=== PATIENT | male | born 1950 | race Caucasian/White ===

== ENCOUNTER 2021-05-04 15:25 | Inpatient (IN) ==
[2021-05-04 16:38] LABS: Bilirubin,Urine Negative (Negative); Blood,Urine Negative (Negative); Clarity,Urine Clear (Clear); Color,Urine Colorless (Yellow); Glucose,Urine (UA) Normal (Normal); Ketones,Urine Negative (Negative); Leukocyte Esterase,Urine Negative (Negative); Nitrite,Urine Negative (Negative); PH,Urine 5.5 pH Units (5.0-8.0); Protein,Urine Negative (Neg-Trace); Urobilinogen,Urine Normal (Normal)
[2021-05-04 16:38] LABS: Hemoglobin 6.8 g/dL (12.9-16.9); Lymphocytes % 16.3 %; Red Cell Distribution Width 17.6 % (11.5-14.5)
[2021-05-04 16:40] LABS: Basophils # 0.1 K/mcL (0.0-0.2); Basophils % 0.6 %; Eosinophils # 0.2 K/mcL (0.0-0.6); Eosinophils % 2.8 %; Immature Granulocytes % 0.7 % (0-4); Lymphocytes # 1.4 K/mcL (0.6-4.6); Mean Corpuscular HGB Conc 26.2 g/dL (31.6-35.5); Mean Corpuscular Hemoglobin 20.1 pg (28.0-33.3); Mean Corpuscular Volume 76.7 fL (83.0-100.0); Mean Platelet Volume 10.4 fL (9.4-12.4); Monocytes # 0.8 K/mcL (0.0-1.3); Neutrophils # 5.8 K/mcL (1.6-8.9); Nucleated Red Blood Cells 0.4 /100 WBC (0); Platelet Count 275 K/mcL (140-400); Red Blood Count 3.39 M/mcL (4.19-5.50); Segmented Neutrophils % 69.6 %; White Blood Count 8.3 K/mcL (4.3-11.1)
[2021-05-04 16:40] LABS: VBG HCO3 28 mEq/L (21-27); VBG PCO2 54 mmHg (41-51); VBG PH 7.32 pH Units (7.32-7.42); VBG PO2 47 mmHg (25-50)
[2021-05-04 16:47] LABS: Amphetamine Screen,Urine Negative ng/mL (Cutoff=1000); Barbiturate Screen,Urine Negative ng/mL (Cutoff=200); Benzodiazepines Screen,Urine Negative ng/mL (Cutoff=200); Cannabinoid Screen,Urine Negative ng/mL (Cutoff = 50); Cocaine Screen,Urine Negative ng/mL (Cutoff= 300); Opiate Screen,Urine Negative ng/mL (Cutoff=300); Phencyclidine Screen,Urine Negative ng/mL (Cutoff=25)
[2021-05-04 17:03] LABS: Hypochromasia Present (Not Present); Polychromasia 1+ (Not Present)
[2021-05-04 17:13] LABS: BUN/Creatinine Ratio 28 (6-26); Blood Urea Nitrogen 30 mg/dL (8-23); Calcium 9.2 mg/dL (8.6-10.3); Carbon Dioxide 26 mEq/L (23-29); Chloride 98 mEq/L (98-107); Creatine Kinase 88 Units/L (30-223); Ethanol < 10 mg/dL (Less than 10); Glucose 146 mg/dL (70-105); Magnesium 1.6 mg/dL (1.6-2.6); Osmolality,Calculated 293 (280-300); Potassium 4.4 mEq/L (3.5-5.1); Sodium 137 mEq/L (136-145); eGFR For African Americans > 60 (> 60); eGFR For Non-African Americans > 60 (> 60)
[2021-05-04 17:14] LABS: Troponin I < 0.03 ng/mL (< 0.04)
[2021-05-04] MEDS ORDERED: 0.9 % Sodium Chloride 250 ML ONE (18:18)
[2021-05-04] MEDS ORDERED: Naloxone 0.4 MG/ML INJ IVP PRN (19:13)
[2021-05-04] MEDS ORDERED: *HR* Promethazine 25 MG/ML VIAL IM PRN (19:13)
[2021-05-04] MEDS ORDERED: Acetaminophen 325 MG TABLET PO PRN (19:13)
[2021-05-04] MEDS ORDERED: Ondansetron 4 MG/2 ML VIAL IVP PRN (19:13)
[2021-05-04] MEDS ORDERED: Melatonin 3 MG TABLET PO PRN (19:13)
[2021-05-04] MEDS ORDERED: *HR* Dextrose 50 % in Water (Syg) 50 ML SYRINGE IVP PRN (19:16)
[2021-05-04] MEDS ORDERED: Dextrose 4 GM Chewable Tablets PO PRN ×2 (19:16)
[2021-05-04] MEDS ORDERED: D5% in Water 1,000 ML IVC PRN (19:16)
[2021-05-04] MEDS ORDERED: Pantoprazole 40 MG VIAL IVP ONE (19:25)
[2021-05-04] MEDS ORDERED: Magnesium Sulfate 1 GM/102 ML PIGGYBACK IVPB ONE (19:51)
[2021-05-04 19:52] LABS: Ferritin < 8 ng/mL (20-250); Iron < 10 mcg/dL (65-175); Transferrin 373 mg/dL (203-362)
[2021-05-04 19:58] LABS: Folate 20.8 ng/mL (3.0-16.0)
[2021-05-04] MEDS ORDERED: Iron Sucrose Complex 400 MG in 0.9 % Sodium Chloride 250 ML IVPB ONE (20:02)
[2021-05-04] MEDS ORDERED: Cyanocobalamin (B-12) 1,000 MCG/ML VIAL SQ ONE (21:44)
[2021-05-04 21:57] LABS: Hematocrit 27.3 % (37.5-50.1); Hemoglobin 7.4 g/dL (12.9-16.9)
[2021-05-05] MEDS ORDERED: Furosemide 20 MG/2 ML VIAL IVP ONE (00:06)
[2021-05-05] MEDS ORDERED: 0.9 % Sodium Chloride 250 ML IVC SCH (00:15)
[2021-05-05] MEDS: Insulin LISPRO 300 UNITS/3 ML VIAL SUBQ SCH ×4 (04:11→18:19)
[2021-05-05] MEDS: 0.9 % Sodium Chloride 1,000 ML IVC SCH ×3 (04:31→22:18)
[2021-05-05] MEDS: Pantoprazole 40 MG in 0.9 % Sodium Chloride Mini Bag 100 ML IVC SCH ×5 (04:32→18:44)
[2021-05-05] MEDS ORDERED: Pantoprazole 40 MG VIAL IVP SCH (06:00)
[2021-05-05 06:06] LABS: Hemoglobin 8.3 g/dL (12.9-16.9); Nucleated Red Blood Cells 0.3 /100 WBC (0); Red Cell Distribution Width 17.8 % (11.5-14.5)
[2021-05-05 06:07] LABS: Basophils # 0.1 K/mcL (0.0-0.2); Basophils % 0.7 %; Eosinophils # 0.2 K/mcL (0.0-0.6); Immature Granulocytes % 0.9 % (0-4); Lymphocytes # 1.1 K/mcL (0.6-4.6); Lymphocytes % 14.3 %; Mean Corpuscular HGB Conc 28.6 g/dL (31.6-35.5); Mean Corpuscular Hemoglobin 21.3 pg (28.0-33.3); Mean Corpuscular Volume 74.6 fL (83.0-100.0); Monocytes # 0.8 K/mcL (0.0-1.3); Monocytes % 11.4 %; Neutrophils # 5.2 K/mcL (1.6-8.9); Platelet Count 212 K/mcL (140-400); Red Blood Count 3.89 M/mcL (4.19-5.50); Segmented Neutrophils % 69.7 %; White Blood Count 7.4 K/mcL (4.3-11.1)
[2021-05-05 06:29] LABS: BUN/Creatinine Ratio 30 (6-26); Blood Urea Nitrogen 27 mg/dL (8-23); Calcium 8.9 mg/dL (8.6-10.3); Carbon Dioxide 30 mEq/L (23-29); Chloride 100 mEq/L (98-107); Glucose 89 mg/dL (70-105); Magnesium 1.7 mg/dL (1.6-2.6); Osmolality,Calculated 291 (280-300); Potassium 3.6 mEq/L (3.5-5.1); Sodium 138 mEq/L (136-145); eGFR For African Americans > 60 (> 60); eGFR For Non-African Americans > 60 (> 60)
[2021-05-05 07:15] LABS: Anisocytosis 1+ (Not Present); Hypochromasia Present (Not Present); Platelet Estimate Normal (Normal)
[2021-05-05 07:16] LABS: Polychromasia 1+ (Not Present)
[2021-05-06] MEDS: 0.9 % Sodium Chloride 1,000 ML IVC SCH ×3 (02:16→23:27)
[2021-05-06] MEDS: Pantoprazole 40 MG in 0.9 % Sodium Chloride Mini Bag 100 ML IVC SCH ×3 (02:17→13:56)
[2021-05-06] MEDS: Insulin LISPRO 300 UNITS/3 ML VIAL SUBQ SCH ×5 (02:25→23:45)
[2021-05-06 03:00] LABS: Eosinophils % 2.7 %
[2021-05-06 03:01] LABS: Basophils % 0.5 %; Eosinophils # 0.2 K/mcL (0.0-0.6); Hematocrit 29.7 % (37.5-50.1); Hemoglobin 8.1 g/dL (12.9-16.9); Immature Granulocytes % 0.6 % (0-4); Lymphocytes # 0.8 K/mcL (0.6-4.6); Lymphocytes % 11.9 %; Mean Corpuscular HGB Conc 27.3 g/dL (31.6-35.5); Mean Corpuscular Hemoglobin 20.8 pg (28.0-33.3); Mean Corpuscular Volume 76.3 fL (83.0-100.0); Mean Platelet Volume 10.5 fL (9.4-12.4); Monocytes # 0.8 K/mcL (0.0-1.3); Monocytes % 11.6 %; Neutrophils # 4.8 K/mcL (1.6-8.9); Nucleated Red Blood Cells 0.6 /100 WBC (0); Platelet Count 243 K/mcL (140-400); Red Blood Count 3.89 M/mcL (4.19-5.50); Red Cell Distribution Width 18.2 % (11.5-14.5); Segmented Neutrophils % 72.7 %; White Blood Count 6.6 K/mcL (4.3-11.1)
[2021-05-06 03:16] LABS: BUN/Creatinine Ratio 14 (6-26); Blood Urea Nitrogen 10 mg/dL (8-23); Calcium 9.4 mg/dL (8.6-10.3); Carbon Dioxide 27 mEq/L (23-29); Chloride 104 mEq/L (98-107); Glucose 123 mg/dL (70-105); Osmolality,Calculated 286 (280-300); Potassium 3.7 mEq/L (3.5-5.1); Sodium 138 mEq/L (136-145); eGFR For African Americans > 60 (> 60); eGFR For Non-African Americans > 60 (> 60)
[2021-05-06 03:20] LABS: Anisocytosis 1+ (Not Present); Microcytosis Present (Not Present); Platelet Estimate Normal (Normal)
[2021-05-06] MEDS: Fluticasone Propionate Nasal 50 MCG/SPRAY BOTTLE NS SCH (10:30)
[2021-05-06] MEDS ORDERED: Lidocaine -MPF 2% 5 ML VIAL ONE (15:09)
[2021-05-06] MEDS ORDERED: *HR* Propofol 200 MG/20 ML VIAL IVP ONE ×2 (15:44→15:55)
[2021-05-06] MEDS: Levalbuterol Neb 1.25 MG/3 ML IH SCH (21:54)
[2021-05-06] MEDS: allopurinoL 100 MG TABLET PO SCH (23:26)
[2021-05-06] MEDS: Isosorbide MONOnitrate (24 HR) 60 MG TAB.ER.24H PO SCH (23:26)
[2021-05-06] MEDS: hydroCHLOROthiazide 25 MG TABLET PO SCH (23:26)
[2021-05-06] MEDS: lisinopriL 20 MG TABLET PO SCH (23:26)
[2021-05-06] MEDS: Apixaban 5 MG TABLET PO SCH (23:27)
[2021-05-06] MEDS: Ezetimibe [Zetia] 10 MG Tablet PO SCH (23:28)
[2021-05-07] MEDS ORDERED: Ketorolac 30 MG/ML VIAL IVP ONE (01:37)
[2021-05-07] MEDS ORDERED: *HR* HYDROcodone/Acet 5/325 mg TABLET PO ONE (01:38)
[2021-05-07] MEDS: Levalbuterol Neb 1.25 MG/3 ML IH SCH ×2 (04:34→10:41)
[2021-05-07 05:18] LABS: Basophils % 0.3 %; Hemoglobin 7.5 g/dL (12.9-16.9); Immature Granulocytes % 0.4 % (0-4)
[2021-05-07 05:19] LABS: Eosinophils # 0.2 K/mcL (0.0-0.6); Eosinophils % 1.6 %; Hematocrit 26.7 % (37.5-50.1); Lymphocytes # 0.9 K/mcL (0.6-4.6); Lymphocytes % 8.8 %; Mean Corpuscular HGB Conc 28.1 g/dL (31.6-35.5); Mean Corpuscular Hemoglobin 21.9 pg (28.0-33.3); Mean Corpuscular Volume 77.8 fL (83.0-100.0); Mean Platelet Volume 10.7 fL (9.4-12.4); Monocytes % 9.2 %; Neutrophils # 8.3 K/mcL (1.6-8.9); Platelet Count 218 K/mcL (140-400); Red Blood Count 3.43 M/mcL (4.19-5.50); Red Cell Distribution Width 18.6 % (11.5-14.5); Segmented Neutrophils % 79.7 %; White Blood Count 10.4 K/mcL (4.3-11.1)
[2021-05-07 05:32] LABS: BUN/Creatinine Ratio 7 (6-26); Blood Urea Nitrogen 5 mg/dL (8-23); Calcium 8.9 mg/dL (8.6-10.3); Carbon Dioxide 27 mEq/L (23-29); Chloride 104 mEq/L (98-107); Glucose 124 mg/dL (70-105); Osmolality,Calculated 283 (280-300); Potassium 3.6 mEq/L (3.5-5.1); Sodium 137 mEq/L (136-145); eGFR For African Americans > 60 (> 60); eGFR For Non-African Americans > 60 (> 60)
[2021-05-07 06:10] LABS: Hypochromasia Present (Not Present); Platelet Estimate Normal (Normal)
[2021-05-07] MEDS: Insulin LISPRO 300 UNITS/3 ML VIAL SUBQ SCH (06:27)
[2021-05-07] MEDS ORDERED: Colchicine 0.6 MG TABLET PO SCH (09:00)
[2021-05-07] MEDS ORDERED: Aspirin Enteric Coated 81 MG Tablet PO SCH (09:00)
[2021-05-07] MEDS ORDERED: hydroCHLOROthiazide 25 MG TABLET PO SCH (09:00)
[2021-05-07] MEDS ORDERED: Celecoxib 200 MG CAPSULE PO SCH (09:00)
[2021-05-07] MEDS ORDERED: Isosorbide MONOnitrate (24 HR) 60 MG TAB.ER.24H PO SCH (09:00)
[2021-05-07] MEDS ORDERED: Torsemide 20 MG TABLET PO SCH (09:00)
[2021-05-07] MEDS ORDERED: Apixaban 5 MG TABLET PO SCH (09:00)
[2021-05-07] MEDS ORDERED: lisinopriL 20 MG TABLET PO SCH (09:00)
[2021-05-07] MEDS ORDERED: Pantoprazole 40 MG VIAL IVP SCH (09:00)
[2021-05-07] MEDS: Apixaban 5 MG TABLET PO SCH (09:08)
[2021-05-07] MEDS: allopurinoL 100 MG TABLET PO SCH (09:08)
[2021-05-07] MEDS: hydroCHLOROthiazide 25 MG TABLET PO SCH (09:08)
[2021-05-07] MEDS: Isosorbide MONOnitrate (24 HR) 60 MG TAB.ER.24H PO SCH (09:08)
[2021-05-07] MEDS: lisinopriL 20 MG TABLET PO SCH (09:09)
[2021-05-07] MEDS: 0.9 % Sodium Chloride 1,000 ML IVC SCH (09:09)
[2021-05-07] MEDS: Fluticasone Propionate Nasal 50 MCG/SPRAY BOTTLE NS SCH (09:28)
[2021-05-07] MEDS: Ezetimibe [Zetia] 10 MG Tablet PO SCH (09:30)
[2021-05-07 11:23] VITALS: O2SAT 95
[2021-05-07 11:29] VITALS: BP 105/55; PULSE 93; TEMP 98
== END 2021-05-07 12:15 | disposition home or self-care (01) | DRG 378 ==
LOC: EMEROOARM 15:25 → 3ANU 15:25
PROVIDERS: ADMIT Internal Medicine; ATTEND Internal Medicine
PROC: ENDOEBX (2021-05-06 09:10)

== ENCOUNTER 2021-12-05 13:54 | Observation (INO) ==
[2021-12-05 14:41] VITALS: TEMP 98.2
[2021-12-05] MEDS ORDERED: Iopamidol - 370 500 ML MLS IVP ONE (16:37)
[2021-12-05 17:03] VITALS: BP 136/70; PULSE 70; O2SAT 100
[2021-12-05 17:36] LABS: Calcium 9.8 mg/dL (8.6-10.3); Potassium 4.1 mEq/L (3.5-5.1); Troponin I 0.03 ng/mL (< 0.04)
[2021-12-05 17:43] LABS: INR 1.4; Prothrombin Time 15.3 Seconds (9.4-12.1)
[2021-12-05 17:59] LABS: Basophils % 0.4 %; Eosinophils # 0.2 K/mcL (0.0-0.6); Eosinophils % 2.5 %; Hematocrit 39.8 % (37.5-50.1); Immature Granulocytes % 0.8 % (0-4); Lymphocytes % 13.4 %; Mean Corpuscular HGB Conc 32.7 g/dL (31.6-35.5); Mean Corpuscular Hemoglobin 30.4 pg (28.0-33.3); Mean Corpuscular Volume 93.2 fL (83.0-100.0); Mean Platelet Volume 11.4 fL (9.4-12.4); Monocytes # 0.7 K/mcL (0.0-1.3); Neutrophils # 5.3 K/mcL (1.6-8.9); Platelet Count 141 K/mcL (140-400); Red Blood Count 4.27 M/mcL (4.19-5.50); Red Cell Distribution Width 14.4 % (11.5-14.5); Segmented Neutrophils % 72.9 %; White Blood Count 7.3 K/mcL (4.3-11.1)
[2021-12-05] MEDS ORDERED: Piperacillin/Tazobactam 3.375 GM in 0.9 % Sodium Chloride Mini Bag 100 ML IVPB ONE (19:25)
[2021-12-05] MEDS ORDERED: Vancomycin 1,750 MG/517.5 ML IV.SOLN IVPB ONE (20:00)
[2021-12-05] MEDS ORDERED: Ondansetron 4 MG/2 ML VIAL IVP PRN (20:16)
[2021-12-05] MEDS ORDERED: Melatonin 3 MG TABLET PO PRN (20:16)
[2021-12-05] MEDS ORDERED: Naloxone 0.4 MG/ML INJ IVP PRN (20:16)
[2021-12-05] MEDS ORDERED: *HR* Dextrose 50 % in Water (Syg) 50 ML SYRINGE IVP PRN (21:50)
[2021-12-05] MEDS ORDERED: Dextrose Gel 15 GM/37.5 ML TUBE PO PRN ×2 (21:50)
[2021-12-05] MEDS ORDERED: D5% in Water 1,000 ML IVC PRN (21:50)
[2021-12-05] MEDS ORDERED: Insulin LISPRO 300 UNITS/3 ML VIAL SUBQ SCH (22:00)
[2021-12-06] MEDS ORDERED: Ampicillin/Sulbactam 3,000 MG in 0.9 % Sodium Chloride Mini Bag 100 ML IVPB SCH
[2021-12-06] MEDS ORDERED: MetroNIDAZOLE 500 MG/100 ML 500 MG/100 ML BAG IVPB SCH
[2021-12-06] MEDS ORDERED: Insulin LISPRO 300 UNITS/3 ML VIAL SUBQ SCH (07:30)
== END 2021-12-05 23:59 | disposition other institution (70) ==
LOC: EMEROOARM 13:54 → 3ANU 13:54
PROVIDERS: ADMIT Internal Medicine; ATTEND Internal Medicine